=== PATIENT | male | born 1930 | race Caucasian/White ===

== ENCOUNTER 2017-09-02 07:12 | Inpatient (IN) ==
[2017-08-27 11:11] LABS: Basophils % 0.4 % (0.0-0.8); Eosinophils # 0.1 10*3/uL (0.0-0.87); Eosinophils % 1.6 % (0.00-10.9); Hematocrit 40.2 VOL% (42.0-52.0); Hemoglobin 13.6 GM/DL (14.0-18.0); Immature Granulocytes % 0.2 %; Immature Granulocytes Absolute 0.01 #; Lymphocytes # 0.9 10*3/uL (1.4-4.0); Lymphocytes % 17.6 % (21.2-54.2); Mean Corpuscular HGB Conc 33.8 GM/DL (32-36); Mean Corpuscular Hemoglobin 32 PG (27-34); Mean Corpuscular Volume 95.5 FL (87-102); Mean Platelet Volume 10.6 FL (9.6-12.0); Monocytes # 0.6 10*3/uL (0.11-0.8); Monocytes % 11.3 % (1.7-12.7); Neutrophils # 3.5 10*3/uL (1.4-7.4); Neutrophils % 68.9 % (38.7-73.9); Platelet Count 165 T/CUMM (130-400); Red Blood Count 4.21 MC/CUMM (3.8-5.5); Red Cell Distribution Width 13.5 % (9.3-17.3); White Blood Count 5.1 T/CUMM (4-12)
[2017-08-27 11:38] LABS: Calcium 9.6 MG/DL (8.5-10.1); Osmolality,Calculated 280.3 MOS/KG (273-304); Potassium 4.3 MMOL/L (3.5-5.1)
[~2017-09-02 07:12] MED LIST: ceFAZolin 1,000 MG in SYRINGE 1 EACH IV ONE
[2017-09-02] MEDS ORDERED: FAMOTIDINE 20 MG TABLET PO ONE (07:40)
[2017-09-02] MEDS ORDERED: DIAZEPAM 5 MG TABLET PO ONE (07:40)
[2017-09-02 08:09] LABS: INR 1.2; PT Patient Result 12.5 SECS
[2017-09-02] MEDS ORDERED: DIAZEPAM 2 MG TABLET ONE (08:18)
[2017-09-02] MEDS ORDERED: ceFAZolin 1,000 MG VIAL ONE (08:18)
[2017-09-02] MEDS ORDERED: FAMOTIDINE 20 MG TABLET ONE (08:19)
[2017-09-02] MEDS ORDERED: DIAZEPAM 5 MG TABLET ONE (08:26)
[2017-09-02] MEDS ORDERED: TISSUE ADHESIVE 1 EACH APPLICATOR TOP ONE (08:26)
[2017-09-02] MEDS ORDERED: HEPARIN 5,000 UNIT/1 ML VIAL ONE (08:26)
[2017-09-02 08:27] LABS: INR 1.2; PT Patient Result 12.6 SECS; Partial Thromboplastin Time 28.1 SECS (0-40)
[2017-09-02] MEDS ORDERED: LACTATED RINGERS 1,000 ML IV SCH ×2 (09:00→17:00)
[2017-09-02] MEDS ORDERED: NALOXONE 0.4 MG/ML VIAL IV PRN (10:42)
[2017-09-02] MEDS ORDERED: HYDROmorphone 2 MG/1 ML VIAL IV PRN (10:42)
[2017-09-02] MEDS ORDERED: PROMETHAZINE 25 MG/1 ML VIAL IM PRN (10:42)
[2017-09-02] MEDS ORDERED: GLUCAGON 1 MG VIAL IM PRN (10:42)
[2017-09-02] MEDS ORDERED: oxyCODONE/ACETAMINOPHEN 5-325 MG TABLET PO PRN ×2 (10:42)
[2017-09-02] MEDS ORDERED: DEXTROSE 50% 25 GM/50 ML VIAL IV PRN (10:42)
[2017-09-02] MEDS ORDERED: ONDANSETRON 4 MG/2 ML VIAL ONE (10:55)
[2017-09-02] MEDS ORDERED: HYDROmorphone 2 MG/1 ML VIAL ONE (10:55)
[2017-09-02] MEDS ORDERED: PHENYLEPHRINE DRIP 40 MG/250 ML PREMIX IV SCH (11:00)
[2017-09-02] MEDS: HYDROmorphone 2 MG/1 ML VIAL IV PRN ×4 (11:00→19:47)
[2017-09-02] MEDS ORDERED: NITROPRUSSIDE 100 MG in DEXTROSE 5% 250 ML IV SCH (11:00)
[2017-09-02] MEDS: ONDANSETRON 4 MG/2 ML VIAL IV PRN ×2 (11:01→19:48)
[2017-09-02] MEDS ORDERED: ONDANSETRON 4 MG/2 ML VIAL IV PRN (11:07)
[2017-09-02] MEDS ORDERED: PROPOFOL 200 MG/20 ML VIAL IV ONE (11:36)
[2017-09-02] MEDS ORDERED: ETOMIDATE 40 MG/20 ML VIAL IV ONE (11:36)
[2017-09-02] MEDS ORDERED: SEVOFLURANE 1 UNIT/15 MINUTE INH ONE (11:36)
[2017-09-02] MEDS ORDERED: HEPARIN/NACL 0.9% 2 UNITS/ML 500 ML IV ONE (11:36)
[2017-09-02] MEDS ORDERED: fentaNYL 100 MCG/2 ML VIAL ONE (11:36)
[2017-09-02] MEDS ORDERED: HEPARIN 10,000 UNIT/10 ML VIAL ONE (11:36)
[2017-09-02] MEDS ORDERED: PHENYLEPHRINE 10 MG/1 ML VIAL IV ONE (11:36)
[2017-09-02] MEDS ORDERED: PHENYLEPHRINE 1 MG/10 ML SYRINGE IV ONE (11:37)
[2017-09-02] MEDS ORDERED: LACTATED RINGERS 1,000 ML IV ONE (11:37)
[2017-09-02] MEDS ORDERED: PROTAMINE SULFATE 50 MG/5 ML VIAL IV ONE (11:37)
[2017-09-02] MEDS ORDERED: SODIUM CHLORIDE 0.9% 250 ML IV ONE (11:37)
[2017-09-02] MEDS ORDERED: ROCURONIUM 100 MG/10 ML VIAL IV ONE (11:37)
[2017-09-02] MEDS ORDERED: GLYCOPYRROLATE 0.4 MG/2 ML VIAL ONE (11:37)
[2017-09-02] MEDS ORDERED: NEOSTIGMINE 10 MG/10 ML VIAL ONE (11:37)
[2017-09-02] MEDS ORDERED: SODIUM CHLORIDE 0.9% 2,000 ML IV ONE (11:37)
[2017-09-02] MEDS: LACTATED RINGERS 1,000 ML IV SCH ×3 (12:00→22:00)
[2017-09-02] MEDS ORDERED: WARFARIN 4 MG TABLET PO SCH (18:00)
[2017-09-03] MEDS ORDERED: ATORVASTATIN 20 MG TABLET PO SCH (09:00)
[2017-09-03] MEDS ORDERED: SPIRONOLACTONE 25 MG TABLET PO SCH (09:00)
[2017-09-03] MEDS ORDERED: FUROSEMIDE 20 MG TABLET PO SCH (09:00)
[2017-09-03] MEDS ORDERED: METOPROLOL SUCCINATE XL 25 MG TABLET PO SCH (09:00)
[2017-09-03] MEDS ORDERED: CYANOCOBALAMIN 500 MCG TABLET PO SCH (09:00)
[2017-09-03] MEDS ORDERED: ASPIRIN EC 81 MG TABLET PO SCH (09:00)
[2017-09-03] MEDS: metFORMIN 500 MG TABLET PO SCH ×2 (09:19→17:50)
[2017-09-03 16:09] VITALS: BP 126/67
[2017-09-03] MEDS ORDERED: WARFARIN 3 MG TABLET PO SCH (18:00)
[2017-09-03] MEDS: HYDROmorphone 2 MG/1 ML VIAL IV PRN (18:02)
== END 2017-09-03 19:42 | disposition home or self-care (01) | DRG 38 ==
LOC: N.OR 07:12 → N.SDSINP 07:12 → N.ICU 10:42 → N.3E 09-03 11:46
PROVIDERS: ADMIT Surgery; ATTEND Surgery